=== PATIENT | male | born 2000 | race Caucasian/White ===

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

== ENCOUNTER 2020-06-09 14:33 | Emergency (ER) | payer BC, OTHER ==
[~2020-06-09] VITALS: Ht 182.9 cm; Wt 63.5 kg
[2020-06-09 14:40] VITALS: BP_SYST 118
[2020-06-09] MEDS: DIPHENHYDRAMINE HCL 50 MG CAPSULE PO ONE (16:18)
[2020-06-09] MEDS: FAMOTIDINE 20 MG TABLET PO ONE (16:18)
[2020-06-09] MEDS: predniSONE 20 MG TABLET PO ONE (16:19)
[2020-06-09] MEDS ORDERED: EPIN0.3P3 IM (17:59)
[2020-06-09 18:15] VITALS: BP_SYST 138
== END 2020-06-09 18:15 | disposition home or self-care (01) ==
LOC: SED 14:33
DX: T63.441A Toxic effect of venom of bees, accidental (unintentional), initial encounter (principal); J45.909 Unspecified asthma, uncomplicated; Z88.0 Allergy status to penicillin; Y92.89 Other specified places as the place of occurrence of the external cause
CPT/HCPCS: 99284

== ENCOUNTER 2020-06-18 13:06 | Emergency (ER) | payer OTHER ==
[~2020-06-18] VITALS: Ht 182.9 cm; Wt 63.5 kg
[2020-06-18 13:06] VITALS: BP_SYST 131
[~2020-06-18 13:06] MED LIST changes: +EPIN0.3P3 IM
[2020-06-18] MEDS ORDERED: LORazepam 1 MG TABLET PO ONE (13:30)
[2020-06-18 14:30] VITALS: BP_SYST 129
[2020-06-18] MEDS ORDERED: CETI-80 PO (14:32)
[2020-06-18] MEDS ORDERED: ALBMDI INH (14:32)
== END 2020-06-18 14:31 | disposition home or self-care (01) ==
LOC: SED 13:06
DX: R06.02 Shortness of breath (principal); J45.909 Unspecified asthma, uncomplicated; Z79.899 Other long term (current) drug therapy; Z88.0 Allergy status to penicillin
CPT/HCPCS: 71045; 99283